=== PATIENT | male | born 1975 | race African-American/Black ===

== ENCOUNTER 2022-08-29 05:03 | Emergency (ER) | payer OTHER ==
[2022-08-29 05:14] VITALS: BMI 33.0
[2022-08-29 07:27] LABS: PH,URINE 7.5 (5.0-8.0); URINE APPEARANCE CLEAR; URINE BILIRUBIN NEGATIVE (NEGATIVE); URINE COLOR YELLOW; URINE GLUCOSE (UA) NEGATIVE (NEGATIVE); URINE KETONE TRACE (NEGATIVE); URINE LEUK ESTERASE NEGATIVE (NEGATIVE); URINE NITRITE NEGATIVE (NEGATIVE); URINE PROTEIN NEGATIVE (NEGATIVE)
[2022-08-29] MEDS ORDERED: ACETAMINOPHEN 1000 MG/100 ML BAG IVPB ONE (09:05)
[2022-08-29 09:18] LABS: VENOUS BASE EXCESS 0.6 mmol/L (-2-2); VENOUS PH 7.376 (7.310-7.410)
[2022-08-29] MEDS ORDERED: ACETAMINOPHEN INJECTION 100 ML IVPB ONE (09:20)
[2022-08-29 09:25] LABS: BASO % 0.3 % (0-2.0); EOS % 0.1 % (0-4.5); HEMATOCRIT 44.4 % (35.4-49); LYMPH % 5.5 % (8-40); MCH 28.7 pg (25.7-33.7); MCHC 33.9 g/dl (32.0-35.9); MEAN CELL VOLUME 84.9 fl (80-96); MEAN PLT VOLUME 7.1 fl (7.5-11.1); MONO % 6.5 % (3.8-10.2); NEUT % 87.6 % (42.8-82.8); PLATELET COUNT 282 10^3/uL (134-434); RBC 5.23 M/mm3 (4.00-5.60); RDW 13.2 % (11.9-15.9); WHITE BLOOD COUNT 13.1 K/mm3 (4.0-10.0)
[2022-08-29] MEDS ORDERED: LACTATED RINGERS SOLUTION 1000 ML INFUS.BAG IV ONE (09:36)
[2022-08-29 09:40] LABS: CHLORIDE 103 mmol/L (98-107); INR 1.13 (0.83-1.09); POTASSIUM 4.1 mmol/L (3.5-5.1); PROTHROMBIN TIME (PATIENT) 13.1 SEC (9.7-13.0); SODIUM 136 mmol/L (136-145)
[2022-08-29 09:41] LABS: BLOOD UREA NITROGEN 12.3 mg/dL (7-18); CO2 26 mmol/L (21-32)
[2022-08-29 09:42] LABS: ALBUMIN 4.2 g/dl (3.4-5.0); ANION GAP 7 MMOL/L (8-16); CALCIUM 9.3 mg/dL (8.5-10.1)
[2022-08-29 09:43] LABS: GLUCOSE,RANDOM 129 mg/dL (74-106)
[2022-08-29 09:45] LABS: CREATININE 1.2 mg/dL (0.55-1.3); SGOT/AST 22 U/L (15-37); SGPT/ALT 26 U/L (13-61)
[2022-08-29 09:47] LABS: BILIRUBIN,TOTAL 1.5 mg/dL (0.2-1); TOT PROT 7.5 g/dl (6.4-8.2)
[2022-08-29 09:48] LABS: ALK PHOS 56 U/L (45-117)
[2022-08-29 10:23] LABS: ERYTHROCYTE SEDIMENTATION RATE 2 mm/hr (0-10)
[2022-08-29 10:24] VITALS: RESP 18
[2022-08-29] MEDS ORDERED: AMOX TR/POT CLAV 875MG/125MG TABLETS (FP) PO ONE (11:28)
[2022-08-29] MEDS ORDERED: AMOX TR/POT CLAV 875MG/125MG TABLETS (FP) ONE (11:41)
[2022-08-29] MEDS ORDERED: KETOROLAC TROMETHAMINE 15 MG/ML VIAL IVPUSH ONE (12:04)
[2022-08-29] MEDS ORDERED: KETOROLAC TROMETHAMINE 15 MG/ML VIAL ONE (12:22)
[2022-08-29 12:57] VITALS: BP 131/87; PULSE 103; TEMP 98.4
== END 2022-08-29 13:23 | disposition home or self-care (01) ==
LOC: JER 05:03
PROC: 3E033NZ Introduction of Analgesics, Hypnotics, Sedatives into Peripheral Vein, Percutaneous Approach (ICD-10-PCS; principal; 2022-08-29)
PROC: 3E0333Z Introduction of Anti-inflammatory into Peripheral Vein, Percutaneous Approach (ICD-10-PCS; 2022-08-29)
DX: R50.81 Fever presenting with conditions classified elsewhere (principal); R30.9 Painful micturition, unspecified; Z20.822 Contact with and (suspected) exposure to COVID-19
CPT/HCPCS: 0241U-QW; 36415; 71045-TC-FY; 80053; 81003; 82550; 82553; 82803; 82962; 83605; 84484; 85025; 85610; 85651; 85730; 86140; 86308; 86618; 86850; 86900; 86901; 87040; 87086; 93005; 93010; 99285-25

== ENCOUNTER 2022-12-05 05:10 | Day surgery (SDC) | payer OTHER ==
[2022-11-30 14:39] VITALS: BMI 32.3
[2022-12-05 09:18] VITALS: BP 121/69; PULSE 84; RESP 18; TEMP 97.7
== END 2022-12-05 09:35 | disposition home or self-care (01) ==
LOC: JASU-ENDO 05:10
PROVIDERS: ATTEND Student in an Organized Health Care Education/Training Program
PROC: 0DBP8ZX Excision of Rectum, Via Natural or Artificial Opening Endoscopic, Diagnostic (ICD-10-PCS; principal; 2022-12-05 08:30)
DX: Z12.11 Encounter for screening for malignant neoplasm of colon (principal); K62.1 Rectal polyp; K64.9 Unspecified hemorrhoids; K63.89 Other specified diseases of intestine
CPT/HCPCS: 82962; 88305-TC